=== PATIENT | male | born 1980 | race Caucasian/White ===

== ENCOUNTER 2023-04-17 09:01 | Inpatient (IN) ==
--- NOTE | 2023-03-30 14:54 | PAT Medication Instructions ---
Medication Instructions Date of Service March 30, 2023 Home Medications Medication Instructions Recorded cyanocobalamin (vitamin B-12) 1,000 mcg IM MONTHLY #7 ea 12/31/22 1,000 mcg/mL injection kit fluticasone propionate 50 2 spray intranasal DAILY #16 grams 12/31/22 mcg/actuation nasal spray,suspension lorazepam 1 mg tablet 1 mg PO TID PRN anxiety #90 tabs 12/31/22 prazosin 1 mg capsule 3 mg PO HS #90 caps 12/31/22 prednisone 20 mg tablet 40 mg PO DAILY PRN swelling #30 12/31/22 tabs tizanidine 4 mg capsule 4 mg PO BID PRN muscle spasticity 12/31/22 #60 caps albuterol sulfate 90 mcg/actuation aerosol inhaler 90 mcg inhalation BID PRN sob cetirizine 10 mg tablet 10 mg PO DAILY PRN allergies cyanocobalamin (vitamin B-12) 1,000 mcg/mL injection kit 1,000 mcg IM MONTHLY epinephrine 0.3 mg/0.3 mL injection, auto-injector 0.3 mg IM Q4H PRN food allergies fluoxetine 20 mg capsule 30 mg PO QAM fluticasone propionate 50 mcg/actuation nasal spray,suspension 2 spray intranasal DAILY lorazepam 1 mg tablet 1 mg PO TID PRN anxiety prazosin 1 mg capsule 3 mg PO HS prednisone 20 mg tablet 40 mg PO DAILY PRN swelling tizanidine 4 mg capsule 4 mg PO BID PRN muscle spasticity buspirone 10 mg tablet 20 mg PO BID celecoxib 200 mg capsule (Celebrex) 200 mg PO QAM magnesium oxide 400 mg PO QAM omeprazole 40 mg capsule,delayed release 40 mg PO QAM Continue as directed epinephrine 0.3 mg/0.3 mL injection, auto-injector 0.3 mg IM Q4H PRN food allergies (if needed) ASK your surgeon for instructions celecoxib 200 mg capsule (Celebrex) 200 mg PO QAM DO NOT take the morning of surgery cetirizine 10 mg tablet 10 mg PO DAILY PRN allergies cyanocobalamin (vitamin B-12) 1,000 mcg/mL injection kit 1,000 mcg IM MONTHLY magnesium oxide 400 mg PO QAM Take morning of surgery With a small sip of water, OTHERWISE NOTHING TO EAT OR DRINK AFTER MIDNIGHT: albuterol sulfate 90 mcg/actuation aerosol inhaler 90 mcg inhalation BID PRN sob (use if needed; please bring rescue inhaler with you to hospital day of surgery if possible) fluoxetine 20 mg capsule 30 mg PO QAM fluticasone propionate 50 mcg/actuation nasal spray,suspension 2 spray intranasal DAILY lorazepam 1 mg tablet 1 mg PO TID PRN anxiety (if needed) prednisone 20 mg tablet 40 mg PO DAILY PRN swelling (if needed) buspirone 10 mg tablet 20 mg PO BID omeprazole 40 mg capsule,delayed release 40 mg PO QAM Take evening before surgery albuterol sulfate 90 mcg/actuation aerosol inhaler 90 mcg inhalation BID PRN sob (if needed) cetirizine 10 mg tablet 10 mg PO DAILY PRN allergies (if needed) lorazepam 1 mg tablet 1 mg PO TID PRN anxiety (if needed) prazosin 1 mg capsule 3 mg PO HS prednisone 20 mg tablet 40 mg PO DAILY PRN swelling (if needed) tizanidine 4 mg capsule 4 mg PO BID PRN muscle spasticity (if needed) buspirone 10 mg tablet 20 mg PO BID Other Notes If you have any questions please call us at [phone] or [phone] or [phone] or [phone]
--- NOTE | 2023-04-03 11:01 | Anesthesiology Consultation ---
Date of Service April 03, 2023 Assessment & Plan (1) Encounter for pre-operative examination: Chart Review Chart Review: Acceptable Risk for Surgery and Patient seen in Pre Admission Testing Teaching & Discussion Pre-Anesthesia Teaching/Discussion Notes: Instructed NPO after midnight before surgery, except medications with 15 cc of water. Medication instructions provided according to the PAT guidelines. History Surgery Operation Date: 04/17/23 10:25 Proposed Procedures p L3-L5 Decompression and Fusion, Spinal Cord Monitoring - Nicolas León DO Height/Weight Height: 6 ft 4 in Weight: 136.078 kg Allergies Allergy/AdvReac Type Severity Reaction Status Date / Time carrot Allergy Severe Anaphylaxis Verified 03/27/23 12:41 celery Allergy Severe Anaphylaxis Verified 03/27/23 12:41 tree nut Allergy Severe Anaphylaxis Verified 03/27/23 12:41 No Known Drug Allergies Allergy Unknown Verified 03/26/23 15:46 Medications Home Medications Medication Instructions Recorded Confirmed Last Taken albuterol sulfate 90 mcg/actuation 90 mcg inhalation BID PRN sob 12/30/22 03/26/23 Unknown aerosol inhaler cetirizine 10 mg tablet 10 mg PO DAILY PRN allergies 12/31/22 03/26/23 Unknown cyanocobalamin (vitamin B-12) 1,000 mcg IM MONTHLY #7 ea 12/31/22 03/26/23 Unknown 1,000 mcg/mL injection kit epinephrine 0.3 mg/0.3 mL 0.3 mg IM Q4H PRN food allergies 12/31/22 03/26/23 Unknown injection, auto-injector fluoxetine 20 mg capsule 30 mg PO QAM 12/31/22 03/26/23 Unknown fluticasone propionate 50 2 spray intranasal DAILY #16 grams 12/31/22 03/26/23 Unknown mcg/actuation nasal spray,suspension lorazepam 1 mg tablet 1 mg PO TID PRN anxiety #90 tabs 12/31/22 03/26/23 Unknown prazosin 1 mg capsule 3 mg PO HS #90 caps 12/31/22 03/26/23 Unknown prednisone 20 mg tablet 40 mg PO DAILY PRN swelling #30 12/31/22 03/26/23 Unknown tabs tizanidine 4 mg capsule 4 mg PO BID PRN muscle spasticity 12/31/22 03/26/23 Unknown #60 caps buspirone 10 mg tablet 20 mg PO BID 03/26/23 03/26/23 Unknown celecoxib 200 mg capsule (Celebrex) 200 mg PO QAM 03/26/23 03/26/23 Unknown magnesium oxide 400 mg PO QAM 03/26/23 03/26/23 Unknown omeprazole 40 mg capsule,delayed 40 mg PO QAM 03/26/23 03/26/23 Unknown release Past Medical History Medical History (Updated 04/03/23 @ 11:24 by Marcia Deulna PA-C) 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 Exercise / Class Metabolic Activity II 4-5 Yardwork/Stairs/Walk up hill (denies chest discomfort or shortness of breath with 1 FOS) Past Surgical History Surgical History (Updated 04/03/23 @ 11:17 by Marcia Deluna PA-C) History of open reduction and internal fixation (ORIF) procedure left ankle Hx of gastric bypass 2010 Past Anesthesia History No Hx of Anesthesia Complications and No Family Hx of Anesthesia Complications History of PONV No Hx of PONV and No Hx of Motion Sickness Social History Smoking Status: Never smoker Do You Dip or Chew Tobacco: No Hx Alcohol Use: Yes Alcohol type: beer alcohol intake frequency: holidays/special occasions only Hx Substance Use: No substance use type: does not use Review of Systems Snoring, denies witnessed apneas. Patient denies chest pain, shortness of breath, dyspnea on exertion, fever, chills, cough, wheezing, or palpitations. Physical Exam Vital Signs Vitals BP 132/88 P 74 TEMP 98.2 SP02 96% on RA RESP 18 Physical Full cervical extension range of motion without pain TMD 3.5 finger breadths Mallampati Score 2 Dentition: intact, denies chipped or loose teeth, caps/crowns, implants or bridges Lungs: normal respiratory effort. Clear throughout to auscultation, no adventitious breath sounds Cardiac: regular rate and rhythm, no murmurs noted Carotid arteries: negative bruit bilat Lab Results Anesthesia Preop Results Results Anesthesia Widget: WBC 4.29 K/ul (4.8-10.8) L 04/03/23 Hgb 15.4 g/dl (14.0-18.0) 04/03/23 Hct 45.0 % (42.0-52.0) 04/03/23 Plt 240 K/uL (130-400) 04/03/23 Na 136 mmol/L (136-145) 04/03/23 K 4.1 mmol/L (3.5-5.1) 04/03/23 Cl 105 mmol/L (98-107) 04/03/23 CO2 26 mmol/L (21-32) 04/03/23 BUN 15 mg/dl (6-23) 04/03/23 Creat 0.91 mg/dl (0.6-1.4) 04/03/23 Glucose Level 98 mg/dl (70-99(Fasting)) 04/03/23 PT 10.8 Seconds (9.0-12.0) 04/03/23 PTT 28.5 Seconds (21.0-31.0) 04/03/23 INR 1.0 (0.9-1.1) 04/03/23 Urine Color Yellow 04/03/23 Urine Appearance Clear (Clear) 04/03/23 Urine pH 6.0 (4.5-7.5) 04/03/23 Urine Specific Sigurd 1.014 (1.000-1.030) 04/03/23 Urine Protein Negative (Negative) 04/03/23 Urine Glucose (UA) Negative (Negative) 04/03/23 Urine Ketones Negative (Negative) 04/03/23 Urine Blood Negative (Negative) 04/03/23 Urine Nitrite Negative (Negative) 04/03/23 Urine Bilirubin Negative (Negative) 04/03/23 Urine Urobilinogen Negative (Negative) 04/03/23 Urine Leukocyte Esterase Negative (Negative) 04/03/23 Blood Type O Negative 04/03/23 Antibody Screen NEGATIVE 04/03/23 Testing Electrocardiogram Date: 04/03/23 NSR, rate 65 bpm Chest X-Ray Date: 04/03/23 Lung volumes are normal. Lungs are clear. There is no pneumothorax or pleural effusion. Cardiac size is normal. Right heart border is slightly obscured. This may be due to a mild pectus excavatum deformity. Mediastinal contours are normal. There is no evidence for pulmonary edema. IMPRESSION: No acute cardiopulmonary findings. Echocardiogram Date: 09/01/22 EF 60-65% Normal LV wall motion No significant valvular disease COVID-19 Risk Screen Screening Information COVID-19 Screen Date: 04/03/23 Exposure 21 Days Family/Household +COVID Last 21 Days: No Exposure 10 Days Any COVID Exposure Last 10 Days: No Symptoms Last 10 Days Experienced COVID Sx Last 10 Days: No + COVID 0-90 Days COVID + in Last 0-90 Days: No
[~2023-04-17 09:01] MED LIST: ACETAMINOPHEN 500 MG TAB PO SCH; CeleBREX 200 MG CAP PO SCH; GABAPENTIN 900 MG DOSE PO SCH; LR 15ML/HR IV SCH
[2023-04-17] MEDS ORDERED: PROMETHAZINE HCL 6.25 MG in SODIUM CHLORIDE 0.9% 50 ML IV PRN (09:32)
[2023-04-17] MEDS ORDERED: ePHEDrine sulfate 50 MG/ML AMP IV PRN (09:32)
[2023-04-17] MEDS ORDERED: ONDANSETRON INJ 2 MG/ML 2 ML VIAL IV PRN ×2 (09:32→15:16)
[2023-04-17] MEDS ORDERED: ATROPINE SULFATE 0.1 MG/ML 10ML SYR IV PRN (09:32)
--- NOTE | 2023-04-17 09:32 | Anesthesiology Consultation ---
Date of Service April 17, 2023 Assessment & Plan Chart Review Chart Review: Acceptable Risk for Surgery and Patient NOT seen in Pre Admission Testing Consults Requested none ASA ASA2 Proposed Anesthesia Anesthesia Type: General History Surgery Operation Date: 04/17/23 10:25 Proposed Procedures p L3-L5 Decompression and Fusion, Spinal Cord Monitoring - Nicolas León DO Height/Weight Height: 6 ft 4 in Weight: 136.531 kg Allergies Allergy/AdvReac Type Severity Reaction Status Date / Time carrot Allergy Severe Anaphylaxis Verified 04/17/23 09:29 celery Allergy Severe Anaphylaxis Verified 04/17/23 09:29 tree nut Allergy Severe Anaphylaxis Verified 04/17/23 09:29 No Known Drug Allergies Allergy Unknown Verified 04/17/23 09:29 Medications Home Medications Medication Instructions Recorded Confirmed Last Taken albuterol sulfate 90 mcg/actuation 90 mcg inhalation BID PRN sob 12/30/22 03/26/23 Unknown aerosol inhaler cetirizine 10 mg tablet 10 mg PO DAILY PRN allergies 12/31/22 03/26/23 Unknown cyanocobalamin (vitamin B-12) 1,000 mcg IM MONTHLY #7 ea 12/31/22 03/26/23 Unknown 1,000 mcg/mL injection kit epinephrine 0.3 mg/0.3 mL 0.3 mg IM Q4H PRN food allergies 12/31/22 03/26/23 Unknown injection, auto-injector fluoxetine 20 mg capsule 30 mg PO QAM 12/31/22 03/26/23 Unknown fluticasone propionate 50 2 spray intranasal DAILY #16 grams 12/31/22 03/26/23 Unknown mcg/actuation nasal spray,suspension lorazepam 1 mg tablet 1 mg PO TID PRN anxiety #90 tabs 12/31/22 03/26/23 Unknown prazosin 1 mg capsule 3 mg PO HS #90 caps 12/31/22 03/26/23 Unknown prednisone 20 mg tablet 40 mg PO DAILY PRN swelling #30 12/31/22 03/26/23 Unknown tabs tizanidine 4 mg capsule 4 mg PO BID PRN muscle spasticity 12/31/22 03/26/23 Unknown #60 caps buspirone 10 mg tablet 20 mg PO BID 03/26/23 03/26/23 Unknown celecoxib 200 mg capsule (Celebrex) 200 mg PO QAM 03/26/23 03/26/23 Unknown magnesium oxide 400 mg PO QAM 03/26/23 03/26/23 Unknown omeprazole 40 mg capsule,delayed 40 mg PO QAM 03/26/23 03/26/23 Unknown release NPO Date Last Intake of Fluids: 04/17/23 Time Last Intake of Fluids: 07:00 Last Intake of Fluids Comment: sip with med Date Last Intake of Solids: 04/16/23 Time Last Intake of Solids: 22:00 Past Medical History Medical History 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, sequela tree nuts, carrots, celery Anxiety Chronic back pain pain down right leg Chronic idiopathic urticaria Degenerative disc disease denies neck pain GERD (gastroesophageal reflux disease) controlled, stable per pt History of COVID-19 10/2022 mild syptoms Hyperlipidemia IBS (irritable bowel syndrome) Post traumatic stress disorder Seasonal allergies Past Surgical History Surgical History History of open reduction and internal fixation (ORIF) procedure left ankle Hx of gastric bypass 2010 Social History Smoking Status: Never smoker Do You Dip or Chew Tobacco: No Hx Alcohol Use: Yes Alcohol type: beer alcohol intake frequency: holidays/special occasions only Hx Substance Use: No substance use type: does not use Physical Exam Vital Signs Last Vital Signs Temp 36.6 C 04/17/23 09:17 Pulse 76 04/17/23 09:17 Resp 20 04/17/23 09:17 Pulse Ox 96 04/17/23 09:17 O2 Del Method Room Air 04/17/23 09:17 Testing Electrocardiogram Date: 04/03/23 NSR, rate 65 bpm Chest X-Ray Date: 04/03/23 Lung volumes are normal. Lungs are clear. There is no pneumothorax or pleural effusion. Cardiac size is normal. Right heart border is slightly obscured. This may be due to a mild pectus excavatum deformity. Mediastinal contours are normal. There is no evidence for pulmonary edema. IMPRESSION: No acute cardiopulmonary findings. Echocardiogram Date: 09/01/22 EF 60-65% Normal LV wall motion No significant valvular disease
[2023-04-17] MEDS ORDERED: MIDAZOLAM HCL 1 MG/ML 2ML VIAL ONE (09:37)
[2023-04-17] MEDS ORDERED: fentaNYL citrate PF 100 MCG/2 ML VIAL ONE ×2 (09:37→11:12)
--- NOTE | 2023-04-17 09:52 | History & Physical Bridge Note ---
Date of Service April 17, 2023 History & Physical Bridge Note I have examined the patient, reviewed the History & Physical and in the interval since the performance of the History & Physical I have noted the following changes of clinical significance: no changes noted
--- NOTE | 2023-04-17 09:53 | History & Physical Report ---
Date of Service April 17, 2023 Assessment & Plan (1) Neurogenic claudication due to lumbar spinal stenosis: Plan: L3-L5 decompression and fusion History of Present Illness Chief Complaint: Back and bilateral leg pain Primary Care Provider: Иван Gordon MD This is a 43-year-old male who presents with chronic persistent back and leg pain after failing course of nonoperative care is here for surgical invention. Allergies Allergy/AdvReac Type Severity Reaction Status Date / Time carrot Allergy Severe Anaphylaxis Verified 04/17/23 09:29 celery Allergy Severe Anaphylaxis Verified 04/17/23 09:29 tree nut Allergy Severe Anaphylaxis Verified 04/17/23 09:29 No Known Drug Allergies Allergy Unknown Verified 04/17/23 09:29 Home Medications Medication Instructions Recorded Confirmed Type albuterol sulfate 90 mcg/actuation 90 mcg inhalation BID PRN sob 12/30/22 04/17/23 History aerosol inhaler cetirizine 10 mg tablet 10 mg PO DAILY PRN allergies 12/31/22 04/17/23 History cyanocobalamin (vitamin B-12) 1,000 mcg IM MONTHLY #7 ea 12/31/22 04/17/23 Rx 1,000 mcg/mL injection kit epinephrine 0.3 mg/0.3 mL 0.3 mg IM Q4H PRN food allergies 12/31/22 04/17/23 History injection, auto-injector fluoxetine 20 mg capsule 30 mg PO QAM 12/31/22 04/17/23 History fluticasone propionate 50 2 spray intranasal DAILY #16 grams 12/31/22 04/17/23 Rx mcg/actuation nasal spray,suspension lorazepam 1 mg tablet 1 mg PO TID PRN anxiety #90 tabs 12/31/22 04/17/23 Rx prazosin 1 mg capsule 3 mg PO HS #90 caps 12/31/22 04/17/23 Rx tizanidine 4 mg capsule 4 mg PO BID PRN muscle spasticity 12/31/22 04/17/23 Rx #60 caps buspirone 10 mg tablet 20 mg PO BID 03/26/23 04/17/23 History celecoxib 200 mg capsule (Celebrex) 200 mg PO QAM 03/26/23 04/17/23 History magnesium oxide 400 mg PO QAM 03/26/23 04/17/23 History omeprazole 40 mg capsule,delayed 40 mg PO QAM 03/26/23 04/17/23 History release Past Med/Surg History Medical History (Updated 04/17/23 @ 09:53 by Nicolas León, DO) 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, sequela tree nuts, carrots, celery Anxiety Chronic back pain pain down right leg Chronic idiopathic urticaria Degenerative disc disease denies neck pain GERD (gastroesophageal reflux disease) controlled, stable per pt History of COVID-19 10/2022 mild syptoms Hyperlipidemia IBS (irritable bowel syndrome) Post traumatic stress disorder Seasonal allergies Surgical History History of open reduction and internal fixation (ORIF) procedure left ankle Hx of gastric bypass 2010 Social History Smoking Status: Never smoker Second Hand Exposure: No; Do You Dip or Chew Tobacco: No; Tobacco Cessation Education Requested by Patient: No Hx Alcohol Use: Yes Alcohol type: beer Hx Substance Use: No Preferred Language: Kazakh Communication Ability: Effective Chest Painting And Sealing Supervisor Required: No Beliefs That Will Affect Care: None Current Living Situation: Spouse Other Information That Helps Us Care for You: No Feels Safe at Home: Yes Safety Concerns: Feels Safe At This Time Assistive Devices: None Physical Exam Physical Exam: Patient is alert and oriented Heart regular rhythm Lungs clear Results & Data Results & Data Vital Signs (Past 12 Hours) Vital Signs Temp Pulse Resp Pulse Ox O2 Del Method 04/17/23 09:17 36.6 C 76 20 96 Room Air
[2023-04-17] MEDS ORDERED: ceFAZolin 330 MG/ML 1 GM VIAL ONE (10:14)
[2023-04-17] MEDS ORDERED: BUPIVACAINE/EPINEPHRINE 0.25% 1:200,000 30 ML VIAL ONE (10:14)
[2023-04-17] MEDS ORDERED: PROPOFOL IV EMULSION 10 MG/ML 20 ML VIAL IV ONE (11:08)
[2023-04-17] MEDS ORDERED: DEXAMETHASONE SOD INJ 4 MG/ML VIAL ONE (11:08)
[2023-04-17] MEDS ORDERED: ROCURONIUM BROMIDE 10 MG/ML 5 ML VIAL IV ONE ×2 (11:08→12:54)
[2023-04-17] MEDS ORDERED: LIDOCAINE 2% 2 ML VIAL/AMP(20MG/ML) INFIL ONE (11:08)
[2023-04-17] MEDS ORDERED: ONDANSETRON INJ 2 MG/ML 2 ML VIAL ONE (11:08)
[2023-04-17] MEDS ORDERED: GLYCOPYRROLATE 0.2 MG/ML VIAL ONE (11:09)
[2023-04-17] MEDS ORDERED: FLOSEAL HEMOSTATIC MATRIX 10ML TOP ONE (11:34)
[2023-04-17] MEDS ORDERED: SUGAMMADEX SODIUM 200 MG/2 ML VIAL IV ONE (12:55)
--- NOTE | 2023-04-17 13:02 | Operative Report ---
Post Operative Report Pre & Post Diagnosis Operation Date: 04/17/23 10:25 Pre-Op Diagnosis: Neurogenic claudication due to lumbar spinal stenosis Morbid obesity Post-Op Diagnosis: Same I identified the patient and participated in the time-out.: Yes Procedure Operation Date: 04/17/23 10:25 Actual Procedures #1 lumbar impression bilateral medial facetectomies and foraminotomies L2-3, L3- L4 and L4-5. #2 posterior spinal fusion L3-L4 L4-5 per #3 placed posterior instrumentation L3-L4 L4-5 per #4 interbody fusion L3-L4 L4 505 placement Spira 15 x 26 mm at L3-L4 L4-L5 #6 placement locally harvested morselized autograft and posterior gutters. #7 placement of I factor V toss in the interbody space and posterior lateral gutters. Surgeon Nicolas León, DO Automatic Presser Harpreet Reeder Estimated Blood Loss 750 Findings See Below The patient is 6 foot 4 weighing over 136 kg with a BMI in excess of 36. This combined with an EBL of greater than 750 cc. Significant technical difficulty. He required deepest retractors and longer instruments in order to perform his procedure. This at least 50% increased to the operative time. Specimens None Indications This is a 42-year-old male who presents above-mentioned diagnosis of failed course of nonoperative care is here for surgical invention. Description of Procedure Patient was met with identified informed consent obtained. Patient was then taken to the operative suite underwent patient placed in a prone position ejected top of some frame. All bony promises well-padded eyes inspected to ensure no external pressure placed upon the. This point lumbar spine was prepped and draped in a sterile fashion. Sharp dissection with the assistance of Bovie cautery to form down to and exposing the lamina transverse processes of L3 L4-5. From caudal cephalad fashion complete laminectomy of L4 L3 impression laminectomy L2 was performed including bilateral medial facetectomies and foraminotomies addressing severe spinal stenosis. Pedicle screws were then placed at L3 L4-5 bilaterally with assistance of fluoroscopy and appropriate sized angelia placed. By way of a transforaminal approach and left complete discectomy of L4-L5 was performed endplates curetted to subcortically and bone and a 15 x 26 mm Spira cage with I factor tapped in position. Then proceeded to L3-L4 and again by way of a trans foraminal approach and left P discectomy performed endplates curetted to subcortically bone and a 15 x 26 mm Spira cage with I factor tapped in position. The rods then compressed locked into final position bilaterally. The transverse processes of L3 L4-5 burred to subcortically bone. I factor amount of the test and locally harvested morselized autograft was placed in the posterior lateral gutters. 15 round NIALL drain inserted. The incision was then closed with 1 Vicryl the fascia 2-0 Vicryl subcutaneously and 4 Monocryl for final skin closure. Steri-Strips sterile dressings placed. Patient waken taken to PACU stable condition. Please note spinal cord monitoring was utilized at the procedure no changes noted. Lastly Harpreet Reeder was present at the entire surgeon while the patient positioning complex portions of the surgery and final skin closure. I attest to the content of the Intraoperative Record and any orders documented therein. Any exceptions are noted below.
--- NOTE | 2023-04-17 13:18 | Fluoroscopy Report ---
FL lumbar spine 2-3V CLINICAL HISTORY: L3-5 DFI COMPARISON STUDY: None. FLUOROSCOPY TIME: 37 seconds FLUOROSCOPY IMAGES: 3 Ka,r: 34.0 mGy FINDINGS: Posterior decompression and fusion within the mid to lower lumbar spine. The exact levels a re difficult to confirm on this spot image. The hardware appears intact. Disc spacers are placed. IMPRESSION: Fluoroscopic assistance as above. ACT 112: Negative or not required by law. Electronically signed by: Ervin Banks M.D. 04/17/2023 1:17 PM
[2023-04-17] MEDS: fentaNYL citrate PF 100 MCG/2 ML VIAL IV PRN ×2 (13:40→13:45)
[2023-04-17] MEDS: HYDROmorphone INJ 2 MG/ML SYR/VIAL IV PRN ×4 (13:50→14:05)
--- NOTE | 2023-04-17 13:55 | Anesthesiology Progress Note ---
Date of Service April 17, 2023 Anesthesia Post Procedure Vital Signs Vital Signs: Temp Pulse Pulse Resp BP BP Pulse Ox 04/17/23 13:50 82 19 141/89 H 98 04/17/23 13:40 89 16 140/97 99 04/17/23 13:30 84 17 133/80 98 04/17/23 13:24 36.1 C L 83 11 L 145/78 H 98 04/17/23 09:17 36.6 C 76 20 150/88 H 96 O2 Del Method O2 Flow Rate 04/17/23 13:50 Oxymask 6 04/17/23 13:40 Oxymask 6 04/17/23 13:30 Oxymask 10 04/17/23 13:24 Oxymask 10 04/17/23 09:17 Room Air Pain Intensity Lower Back: Pain Intensity: 5 Transfer of Care Handoff Completed per policy Notes Mental Status: alert / awake / arousable Patient Amnestic to Procedure: Yes Nausea / Vomiting: adequately controlled Pain: adequately controlled Airway Patency, RR, SpO2: stable & adequate BP & HR: stable & adequate Hydration State: stable & adequate Anesthetic Complications: no major complications apparent
[2023-04-17] MEDS ORDERED: hydrOXYzine HCl 25 MG TAB PO PRN (15:16)
[2023-04-17] MEDS ORDERED: LORazepam 2 MG/1 ML VIAL IV PRN (15:16)
[2023-04-17] MEDS ORDERED: PROMETHAZINE HCL 12.5 MG in SODIUM CHLORIDE 0.9% 50 ML IV PRN (15:16)
[2023-04-17] MEDS ORDERED: HYDROmorphone INJ 0.5 MG/0.5 ML SYR IV PRN (15:16)
[2023-04-17] MEDS ORDERED: traMADol HCL 50 MG TABLET PO PRN (15:16)
[2023-04-17] MEDS ORDERED: DO NOT ADMINISTER FLU VACCINE PRN (15:16)
[2023-04-17] MEDS ORDERED: bisacodyL 10 MG SUPP PR PRN (15:16)
[2023-04-17] MEDS ORDERED: METOCLOPRAMIDE HCL INJ 5 MG/ML 2 ML VIAL IV PRN (15:16)
[2023-04-17] MEDS ORDERED: HYDROmorphone INJ 1 MG/ML SYRINGE IV PRN (15:16)
[2023-04-17] MEDS ORDERED: diphenhydrAMINE Capsule 25 MG CAP PO PRN (15:16)
[2023-04-17] MEDS ORDERED: DO NOT ADMINISTER PNEUMOCOCCAL VACCINE PRN (15:16)
[2023-04-17] MEDS ORDERED: ONDANSETRON 4 MG OD TAB PO PRN (15:16)
[2023-04-17] MEDS ORDERED: ACETAMINOPHEN 1,000 MG/100 ML VIAL IV PRN (15:16)
[2023-04-17] MEDS ORDERED: MAGNESIUM HYDROXIDE SUSP 30 ML UDC PO PRN (15:16)
[2023-04-17] MEDS ORDERED: SOD PHOSPHATE/SOD BIPHOSPHATE ENEMA 132 ML BTL PR PRN (15:16)
[2023-04-17] MEDS ORDERED: NALOXONE HCL 0.4 MG/1 ML VIAL/CARP IV PRN (15:16)
[2023-04-17] MEDS ORDERED: CETIRIZINE HCL 10 MG TABLET PO PRN (15:16)
[2023-04-17] MEDS ORDERED: ALUMINUM/MAGNESIUM SUSP 30 ML UDC PO PRN (15:16)
[2023-04-17] MEDS ORDERED: FAMOTIDINE 20 MG TAB PO PRN (15:16)
[2023-04-17] MEDS: LACTATED RINGER'S 1,000 ML IV SCH ×2 (15:28→22:06)
[2023-04-17] MEDS ORDERED: EPINEPHrine INJ 1 MG/ML AMP IM PRN (15:31)
[2023-04-17] MEDS: oxyCODONE HCL IR 5 MG TAB (IMMEDIATE RELEASE) PO PRN ×2 (17:44→22:05)
--- NOTE | 2023-04-17 18:17 | Consultation ---
Date of Consultation April 17, 2023 Assessment & Plan (1) Neurogenic claudication due to lumbar spinal stenosis: Plan #. Status post lumbar decompression fusion by Dr. León #. Neurogenic claudication due to lumbar spinal stenosis Patient is a status post surgery 04/17, hemodynamically stable. Pain management. DVT prophylaxis and PT OT per primary team. We will get labs in a.m. Watch out for blood loss anemia. #. Chronic medical condition: resume home meds as able. DVT Px: SCDs, per primary full code. History of Present Illness Requesting Physician: Dr. León Reason for Consultation: Medical Mx Attending Physician: Nicolas León, DO History of Present Illness 43-year-old male with PMH of neurogenic claudication due to lumbar spinal stenosis was seen at bedside after lumbar decompression and fusion. Patient denies any fever/illness/runny nose/sore throat/cough/chest pain in the past few weeks preceding surgery. Patient denies smoking, uses alcohol very occasionally, denies using any recreational drugs. Full code Medications were reviewed with the patient. Patient appears hemodynamically stable, was sitting upright and have improved after surgery. Patient reports improvement in his RLE radicular pain after the surgery. Allergies Allergy/AdvReac Type Severity Reaction Status Date / Time carrot Allergy Severe Anaphylaxis Verified 04/17/23 09:29 celery Allergy Severe Anaphylaxis Verified 04/17/23 09:29 tree nut Allergy Severe Anaphylaxis Verified 04/17/23 09:29 No Known Drug Allergies Allergy Unknown Verified 04/17/23 09:29 Home Medications Medication Instructions Recorded Confirmed Type albuterol sulfate 90 mcg/actuation 90 mcg inhalation BID PRN sob 12/30/22 History aerosol inhaler cetirizine 10 mg tablet 10 mg PO DAILY PRN allergies 12/31/22 04/17/23 History cyanocobalamin (vitamin B-12) 1,000 mcg IM MONTHLY #7 ea 12/31/22 04/17/23 Rx 1,000 mcg/mL injection kit epinephrine 0.3 mg/0.3 mL 0.3 mg IM Q4H PRN food allergies 12/31/22 04/17/23 History injection, auto-injector fluoxetine 20 mg capsule 30 mg PO QAM 12/31/22 04/17/23 History fluticasone propionate 50 2 spray intranasal DAILY #16 grams 12/31/22 04/17/23 Rx mcg/actuation nasal spray,suspension lorazepam 1 mg tablet 1 mg PO TID PRN anxiety #90 tabs 12/31/22 04/17/23 Rx prazosin 1 mg capsule 3 mg PO HS #90 caps 12/31/22 04/17/23 Rx tizanidine 4 mg capsule 4 mg PO BID PRN muscle spasticity 12/31/22 04/17/23 Rx #60 caps buspirone 10 mg tablet 20 mg PO BID 03/26/23 04/17/23 History celecoxib 200 mg capsule (Celebrex) 200 mg PO QAM 03/26/23 04/17/23 History magnesium oxide 400 mg PO QAM 03/26/23 04/17/23 History omeprazole 40 mg capsule,delayed 40 mg PO QAM 03/26/23 04/17/23 History release Patient History Medical History (Updated 04/17/23 @ 09:53 by Nicolas León DO) 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, sequela tree nuts, carrots, celery Anxiety Chronic back pain pain down right leg Chronic idiopathic urticaria Degenerative disc disease denies neck pain GERD (gastroesophageal reflux disease) controlled, stable per pt History of COVID-19 10/2022 mild syptoms Hyperlipidemia IBS (irritable bowel syndrome) Post traumatic stress disorder Seasonal allergies Surgical History History of open reduction and internal fixation (ORIF) procedure left ankle Hx of gastric bypass 2010 Social History Smoking Status: Never smoker Second Hand Exposure: No; Do You Dip or Chew Tobacco: No; Tobacco Cessation Education Requested by Patient: No Hx Alcohol Use: Yes Alcohol type: beer Hx Substance Use: No Preferred Language: Nigerian Communication Ability: Effective Children'S Service Worker Required: No Beliefs That Will Affect Care: None Current Living Situation: Spouse Other Information That Helps Us Care for You: No Feels Safe at Home: Yes Safety Concerns: Feels Safe At This Time Assistive Devices: None Review of Systems Review of Systems: Negative otherwise mentioned in HPI. Physical Exam 2 Physical Exam: GENERAL: Alert and oriented x3. NAD, on RA. HEENT: No pallor, no icterus. Pupils equal, round and reactive to light. Oral mucosa moist. NECK: No JVD, no neck masses. HEART: S1 and S2 heard. Regular rate and rhythm. No murmur, no gallop. RESPIRATORY SYSTEM: Normal AP diameter. No accessory muscle use. No wheezing, no crackles. ABDOMEN: Soft, bowel sounds present, nontender, no distention. CENTRAL NERVOUS SYSTEM: No facial droop. Speech is clear. Obeys simple commands. Moves extremities. EXTREMITIES: No edema, no erythema seen. Lower back with clean dressing without soakage, NIALL drain with moderate serosanguineous collection noted. Distal neurovascular status WNL. Results & Data Vital Signs (Past 12 Hours) Vital Signs Temp Pulse Pulse Resp BP BP Pulse Ox 04/17/23 17:17 37 C 93 H 16 133/89 96 04/17/23 16:14 36.6 C 74 17 127/84 95 04/17/23 16:09 04/17/23 15:48 36.6 C 79 17 124/86 96 04/17/23 15:00 81 17 126/90 94 04/17/23 14:45 79 16 120/98 95 04/17/23 14:10 76 17 131/87 94 04/17/23 14:30 36.5 C 83 16 136/87 96 04/17/23 14:20 77 14 136/82 95 04/17/23 14:00 90 15 143/100 H 94 04/17/23 13:50 82 19 141/89 H 98 04/17/23 13:40 89 16 140/97 99 04/17/23 13:30 84 17 133/80 98 04/17/23 13:24 36.1 C L 83 11 L 145/78 H 98 04/17/23 09:17 36.6 C 76 20 150/88 H 96 O2 Del Method O2 Flow Rate 04/17/23 17:17 Nasal Cannula 1 04/17/23 16:14 Nasal Cannula 2 04/17/23 16:09 Nasal Cannula 04/17/23 15:48 Nasal Cannula 2 04/17/23 15:00 Nasal Cannula 2 04/17/23 14:45 Nasal Cannula 2 04/17/23 14:10 Nasal Cannula 2 04/17/23 14:30 Nasal Cannula 2 04/17/23 14:20 Nasal Cannula 2 04/17/23 14:00 Nasal Cannula 2 04/17/23 13:50 Oxymask 6 04/17/23 13:40 Oxymask 6 04/17/23 13:30 Oxymask 10 04/17/23 13:24 Oxymask 10 04/17/23 09:17 Room Air
[2023-04-17] MEDS: ceFAZolin 2000MG 2,000 MG/15 ML SYR IV SCH (18:31)
[2023-04-17] MEDS: busPIRone 5 MG TAB PO SCH (20:33)
[2023-04-17] MEDS: DOCUSATE SODIUM/SENNA 50/8.6MG TAB PO SCH (20:33)
[2023-04-17] MEDS: PRAZOSIN HCL 1 MG CAP PO SCH (20:33)
[2023-04-17] MEDS: ACETAMINOPHEN 500 MG TAB PO PRN (22:05)
[2023-04-18] MEDS: oxyCODONE HCL IR 5 MG TAB (IMMEDIATE RELEASE) PO PRN ×5 (03:20→22:33)
[2023-04-18] MEDS: ceFAZolin 2000MG 2,000 MG/15 ML SYR IV SCH (03:20)
[2023-04-18] MEDS: LACTATED RINGER'S 1,000 ML IV SCH (05:24)
[2023-04-18] MEDS: POLYETHYLENE (MIRALAX) 17 GM PACK PO SCH ×4 (06:09→23:04)
[2023-04-18 07:07] LABS: Basophils # (auto) 0.02 K/uL (0-0.2); Basophils % (auto) 0.2 %; Eosinophils # (auto) 0.02 K/uL (0-0.50); Eosinophils % (auto) 0.2 %; Hematocrit (blood only) 37.4 % (42.0-52.0); Hemoglobin 12.8 g/dl (14.0-18.0); Immature Granulocytes # (auto) 0.03 K/uL (0.01-0.20); Immature Granulocytes % (auto) 0.3 %; Lymphocytes # (auto) 1.88 K/uL (1.2-3.4); Lymphocytes % (auto) 21.6 %; Mean Corpuscular Hemoglobin 32.5 pg (25.0-34.0); Mean Corpuscular Hgb Conc 34.2 g/dL (32.0-36.0); Mean Corpuscular Volume 94.9 fL (80.0-100.0); Mean Platelet Volume 9.5 fL (9.4-12.4); Monocytes # (auto) 0.91 K/uL (0.11-0.59); Monocytes % (auto) 10.5 %; Neutrophils # (auto) 5.84 K/uL (1.40-6.50); Neutrophils % (auto) 67.2 %; Platelet Count 185 K/uL (130-400); RDW Coefficient of Variation 12.5 % (11.5-14.5); RDW Standard Deviation 43.8 fL (36.4-46.3); Red Blood Count 3.94 M/uL (4.70-6.10)
[2023-04-18 07:23] LABS: BUN Creatinine Ratio 13.8 (10-20); Calcium 8.5 mg/dl (8.6-10.3); Creatinine Clr Calc Pharmacy 165.2 ml/min; Est GFR (African American) 122.5 ml/min; Est GFR (Non-African American) 105.7 ml/min; Potassium 3.9 mmol/L (3.5-5.1)
[2023-04-18] MEDS: ACETAMINOPHEN 500 MG TAB PO PRN (07:59)
[2023-04-18] MEDS: busPIRone 5 MG TAB PO SCH ×2 (08:01→20:48)
[2023-04-18] MEDS: PANTOprazole 40 MG TAB PO SCH (08:02)
[2023-04-18] MEDS: FLUoxetine HCL 10 MG CAP PO SCH (08:02)
[2023-04-18] MEDS: MAGNESIUM OXIDE 400 MG TAB PO SCH (08:02)
[2023-04-18] MEDS: FLUTICASONE PROPIONATE NA SPR 16 GM BTL SCH (08:03)
[2023-04-18] MEDS: dexAMETHasone 6 MG in SYRINGE 0 ML IV SCH (08:05)
--- NOTE | 2023-04-18 08:19 | Orthopedic Progress Note ---
Date of Service April 18, 2023 Assessment & Plan (1) Neurogenic claudication due to lumbar spinal stenosis: Plan: Patient is doing well postop day #1. Going to continue with pain control measures. We will DC his catheter. We will maintain his NIALL drain. He will be seen by physical therapy today for ambulation and gait training. We will likely keep him in throughout the weekend and let him go home on Thursday. Admission and Anticipated Discharge Date Admission Date: April 17, 2023 Subjective Patient was seen bedside in room 363. He has some soreness in the back today but the legs seem to be doing better. He still has numbness in the anterior thigh on the left. He has been tolerating food and liquids without difficulties. He denies any other numbness, tingling, or paresthesias. Physical Exam Physical Exam: On exam he is alert and oriented. He is in no apparent distress. His dressing is clean dry and intact his NIALL drain is in place and put out 40 cc and 60 cc on the previous shift. His lower extreme motor exam reveals no focal atrophy his calves are supple nontender his abdomen soft nontender his strength and sensation are grossly intact. Cardiovascular exam reveals no gross abnormalities. Results & Data Vital Signs (Past 12 Hours) Vital Signs Temp Pulse Pulse Resp BP Pulse Ox O2 Del Method 04/18/23 08:12 36.4 C L 84 17 145/80 H 98 Room Air 04/18/23 03:25 36.7 C 97 H 16 117/72 91 Room Air 04/17/23 22:15 37.3 C 106 H 16 133/72 93 Room Air 04/17/23 20:30 88 138/80
--- NOTE | 2023-04-18 14:33 | Hospitalist Progress Note ---
Date of Service April 18, 2023 Assessment & Plan (1) Neurogenic claudication due to lumbar spinal stenosis: Plan #. Status post lumbar decompression fusion by Dr. León #. Neurogenic claudication due to lumbar spinal stenosis #. Acute blood loss anemia: Secondary to operative blood loss patient with no signs and symptoms of anemia, no need for transfusion. Patient is a status post surgery 04/17, hemodynamically stable. Pain management. DVT prophylaxis and PT OT per primary team. Labs in a.m. per H&H monitoring. #. Chronic medical condition: c/w home meds as able. DVT Px: SCDs, per primary full code. Admission and Anticipated Discharge Date Admission Date: April 17, 2023 Subjective Patient seen and examined at bedside as a follow-up of medical management for lumbar decompression and fusion. Patient was lying semiupright in bed, on room air, NAD, denies any new acute event overnight. Reports soreness at operative site. Reports moving gas, has not moved bowel, reports pain under control with pain medications. Denies any headache/fever/chills/chest pain/other review of symptoms. Physical Exam Physical Exam: GENERAL: Alert and oriented x3. NAD, on RA. HEENT: No pallor, no icterus. Pupils equal, round and reactive to light. Oral mucosa moist. NECK: No JVD, no neck masses. HEART: S1 and S2 heard. Regular rate and rhythm. No murmur, no gallop. RESPIRATORY SYSTEM: Normal AP diameter. No accessory muscle use. No wheezing, no crackles. ABDOMEN: Soft, bowel sounds present, nontender, no distention. CENTRAL NERVOUS SYSTEM: No facial droop. Speech is clear. Obeys simple commands. Moves extremities. EXTREMITIES: No edema, no erythema seen. Lower back with clean dressing without soakage, NIALL drain with moderate serosanguineous collection noted. Distal neurovascular status WNL. Results & Data Results & Data Vital Signs (Past 12 Hours) Vital Signs Temp Pulse Resp BP Pulse Ox O2 Del Method 04/18/23 08:12 36.4 C L 84 17 145/80 H 98 Room Air 04/18/23 03:25 36.7 C 97 H 16 117/72 91 Room Air
[2023-04-18] MEDS: DOCUSATE SODIUM/SENNA 50/8.6MG TAB PO SCH (20:48)
[2023-04-18] MEDS: PRAZOSIN HCL 1 MG CAP PO SCH (20:48)
[2023-04-18] MEDS: LORazepam 0.5 MG TAB PO PRN (23:04)
[2023-04-19] MEDS: POLYETHYLENE (MIRALAX) 17 GM PACK PO SCH ×4 (06:06→20:51)
[2023-04-19] MEDS: oxyCODONE HCL IR 5 MG TAB (IMMEDIATE RELEASE) PO PRN ×4 (06:08→22:40)
[2023-04-19 07:53] LABS: Hematocrit (blood only) 34.2 % (42.0-52.0); Hemoglobin 11.7 g/dl (14.0-18.0)
[2023-04-19] MEDS: PANTOprazole 40 MG TAB PO SCH (08:02)
[2023-04-19] MEDS: MAGNESIUM OXIDE 400 MG TAB PO SCH (08:03)
[2023-04-19] MEDS: busPIRone 5 MG TAB PO SCH ×2 (08:03→20:51)
--- NOTE | 2023-04-19 08:03 | Orthopedic Progress Note ---
Date of Service April 19, 2023 Assessment & Plan (1) Neurogenic claudication due to lumbar spinal stenosis: Plan: Patient is stable postoperative day #2. He still has not had a bowel movement and he is still putting out significant mount of drainage through his NIALL. We will keep him today continue with GI DVT prophylaxis as well as pain control measures. We will advance his bowel regimen and hopefully get him home tomorrow. Admission and Anticipated Discharge Date Admission Date: April 17, 2023 Subjective Patient is seen bedside in room 363. He is doing well this morning. His pain is well controlled. He has not yet had a bowel movement he is tolerating oral intake without difficulties however. He still has numbness in the left anterior thigh but no eve radicular complaints. He denies any other numbness, tingling, or paresthesias. Physical Exam Physical Exam: On exam he is alert and oriented. His abdomen soft and nontender his calves are supple nontender. His strength and sensation are both intact. Visual corrales are grossly intact. Cardiovascular exam reveals no gross abnormalities. Results & Data Vital Signs (Past 12 Hours) Vital Signs Temp Pulse Resp BP Pulse Ox O2 Del Method 04/19/23 07:33 36.9 C 89 16 120/72 97 Room Air 04/18/23 21:26 37.4 C 105 H 16 141/82 H 95 Room Air
[2023-04-19] MEDS: FLUTICASONE PROPIONATE NA SPR 16 GM BTL SCH (08:04)
[2023-04-19] MEDS: FLUoxetine HCL 10 MG CAP PO SCH (08:04)
[2023-04-19] MEDS: dexAMETHasone 6 MG in SYRINGE 0 ML IV SCH (08:56)
--- NOTE | 2023-04-19 17:16 | Hospitalist Progress Note ---
Date of Service April 19, 2023 Assessment & Plan (1) Neurogenic claudication due to lumbar spinal stenosis: Plan #. Status post lumbar decompression fusion by Dr. León #. Neurogenic claudication due to lumbar spinal stenosis #. Acute blood loss anemia: Secondary to operative blood loss patient with no signs and symptoms of anemia, no need for transfusion. Patient is a status post surgery 04/17, hemodynamically stable. Pain management. DVT prophylaxis and PT OT per primary team. Hb fairly stable now. #. Chronic medical condition: c/w home meds as able. DVT Px: SCDs, per primary full code. Admission and Anticipated Discharge Date Admission Date: April 17, 2023 Subjective Patient seen and examined at bedside as a follow-up of medical management for lumbar decompression and fusion. Patient was lying semiupright in bed, on room air, NAD, denies any new acute event overnight. Reports soreness at operative site improving. Reports moving bowel, reports pain under control with pain medications. Denies any headache/fever/chills/chest pain/other review of symptoms. Physical Exam Physical Exam: GENERAL: Alert and oriented x3. NAD, on RA. HEENT: No pallor, no icterus. Pupils equal, round and reactive to light. Oral mucosa moist. NECK: No JVD, no neck masses. HEART: S1 and S2 heard. Regular rate and rhythm. No murmur, no gallop. RESPIRATORY SYSTEM: Normal AP diameter. No accessory muscle use. No wheezing, no crackles. ABDOMEN: Soft, bowel sounds present, nontender, no distention. CENTRAL NERVOUS SYSTEM: No facial droop. Speech is clear. Obeys simple commands. Moves extremities. EXTREMITIES: No edema, no erythema seen. Lower back with clean dressing without soakage, NIALL drain with scant serosanguineous collection noted. Distal neurovascular status WNL. Results & Data Results & Data Vital Signs (Past 12 Hours) Vital Signs Temp Pulse Pulse Resp BP Pulse Ox O2 Del Method 04/19/23 15:04 36.8 C 83 16 146/84 H 95 Room Air 04/19/23 07:33 36.9 C 89 16 120/72 97 Room Air
[2023-04-19] MEDS: PRAZOSIN HCL 1 MG CAP PO SCH (20:51)
[2023-04-19] MEDS: DOCUSATE SODIUM/SENNA 50/8.6MG TAB PO SCH (20:51)
[2023-04-19] MEDS: LORazepam 0.5 MG TAB PO PRN (22:40)
[2023-04-20] MEDS: oxyCODONE HCL IR 5 MG TAB (IMMEDIATE RELEASE) PO PRN ×2 (05:54→12:26)
[2023-04-20] MEDS: POLYETHYLENE (MIRALAX) 17 GM PACK PO SCH (05:55)
[2023-04-20] MEDS: FLUTICASONE PROPIONATE NA SPR 16 GM BTL SCH (08:08)
[2023-04-20] MEDS: dexAMETHasone 6 MG in SYRINGE 0 ML IV SCH (08:09)
[2023-04-20] MEDS: FLUoxetine HCL 10 MG CAP PO SCH (08:09)
[2023-04-20] MEDS: PANTOprazole 40 MG TAB PO SCH (08:09)
[2023-04-20] MEDS: MAGNESIUM OXIDE 400 MG TAB PO SCH (08:09)
[2023-04-20] MEDS: busPIRone 5 MG TAB PO SCH (08:09)
--- NOTE | 2023-04-20 09:34 | Discharge Summary ---
Date of Service April 20, 2023 Admission HPI Per Admitting Provider This is a 43-year-old male who presents with chronic persistent back and leg pain after failing course of nonoperative care is here for surgical invention. Principal Diagnosis Lumbar spinal stenosis with neurogenic claudication Discharge Data Allergies Allergy/AdvReac Type Severity Reaction Status Date / Time carrot Allergy Severe Anaphylaxis Verified 04/17/23 09:29 celery Allergy Severe Anaphylaxis Verified 04/17/23 09:29 tree nut Allergy Severe Anaphylaxis Verified 04/17/23 09:29 No Known Drug Allergies Allergy Unknown Verified 04/17/23 09:29 Consultations 04/17/23 15:16 Consult Hospitalist Routine Procedures Performed Operation Date: 04/17/23 10:25 Actual Procedures p L3-L5 Decompression and Fusion, Spinal Cord Monitoring(Not Applicable) - Nicolas León DO Ordered Studies 04/17/23 10:25 [place] lumbar spine 2-3V Routine Hospital Course (1) Neurogenic claudication due to lumbar spinal stenosis: Patient 1 lumbar decompression fusion follow-up tolerates well stable orthopedic. Labor postop day 1 is up and ambulating breast postop day #2 postop day 3 pain was well controlled NIALL drain decreased appropriate. Excellent strength testing. Subsidy discharged home. Discharge orders instructions found in chart for further review. Total Time Total Time Spent Total Time Spent (In Minutes): 20 minutes Discharge Plan Discharge Items Patient Disposition: Home - Self-Care Reason For Visit: spinal Stenosis Lumbar Region without Neurogenic C Discharge Diagnosis: Lumbar spinal stenosis with neurogenic claudication Activity: As commented below Lifting: None Non-emergency contact: Primary Care Provider Call non-emergency contact if: you have any medication questions Follow-up/Referrals: Иван Gordon MD [Primary Care Provider] - Diet: Regular Addtl Attending Provider Instructions: ACTIVITY RECOMMENDATIONS: SELF CARE INSTRUCTIONS AFTER THORACIC/LUMBAR FUSIONS 1. You may walk to your tolerance. It is good exercise for your legs and back. Expect some back and intermittent leg aches and pains. 2. You may perform "counter-top" level activities (make a sandwich, robyn with a project, etc.). 3. No bending or lifting of more than 10 pounds or back twisting of any nature (roll like a log when turning in bed). 4. You may ride in a car for 20-30 minutes at a time. No driving until after your first visit with your doctor. 5. Frequent changes of position and restricting sitting to 30 minutes at a time will help limit the amount of back spasms and stiffness you may experience. 6. You may discontinue the use of ambulatory aids (cane, crutches, etc.) once your strength and confidence allow. 7. You may clinical sales consultant the shower and let water strike your incision when you arrive home at least once daily. Do not take a tub bath, sit in a hot tub or go into a swimming pool until after your first recheck in the office. SPECIAL CARE INSTRUCTIONS: VERY IMPORTANT TO READ AND REVIEW A. Your surgical incision has been closed with a cosmetic suture under the skin that will dissolve in about 6 weeks. In 14 days, you can use a pair of clean scissors and cut the suture that is left outside of the skin at the ends of your incision. 1. The small skin tapes can be removed 7 days after surgery if they have not fallen off by that point. 2. You may keep the wound open to air as much as possible to promote healing after post-op day number 5 unless told otherwise by your doctor. 3. If you think the wound looks like it is becoming infected (redness or worsening drainage) and/or you are experiencing fever, chill or worsening back pain and muscle spasms, contact the office so that we may evaluate you as soon as possible. B. Complications are uncommon, but please contact us if you have any signs or symptoms of: 1. wound infection (fever higher than 102.5 degrees F, redness, separation of wound, drainage, or increasing pain from the incision) 2. blood clots in legs (pain, swelling, redness and warmth in legs) 3. urinary tract infection (fever higher than 102.5 degrees F, burning upon urination or increased frequency of urination) 4. nerve problems (inability to walk on your toes or heels, numbness, loss of bowel or bladder control) 5. any other symptoms that concern you C. Please call the office at if you have any concerns or questions about your operation or recovery. D. No smoking! Smoking drastically decreases the chance of a solid fusion. E. Do not take any anti-inflammatory medications (Indocin, Advil, Motrin, Aspirin, Naprosyn, etc.) as these may inhibit the chance of a solid fusion. Tylenol is okay to take for pain. MANAGING PAIN AFTER SPINAL SURGERY 1. Narcotic medication is intended for short-term use and will be provided for surgical pain. Surgical pain usually lasts for a period of 4-6 weeks. Narcotic medication includes Percocet, Vicodin, Darvocet, Tylenol #3 or Lortab. 2. Longer-term pain is more appropriately treated with non-narcotic medication such as Tylenol ES. 3. Muscle spasm is not appropriately treated with narcotics. Muscle relaxers such as Soma, Flexeril or Skelaxin can be used along with Tylenol ES. 4. Remember that we all live with some "aches and pains". This is not unusual or uncommon after an injury or as we get older. a. Back pain is expected and may include muscle spasms for 4 to 6 weeks after surgery. The pain should gradually improve. If the pain worsens for no apparent reason, please contact the office. b. Intermittent leg pain may also be experienced and should not be concerned about unless it worsens for no apparent reason. If so, please contact the office. 5. We will provide appropriate medication within the normal guidelines of their prescribed use. We will also be very cautious and aware of potential abuse and extended duration of patients' medication needs. a. Pain medications are for your comfort and to assist with sleep and rest so that the tissue can heal. They are not provided in order to return to normal activity and should not be used through the day. To do so or worsening pain at night can result from ongoing tissue damage and development of tolerance to the prescribed medicine. 6. Please allow 2-3 days to process refills. Prescriptions will not be mailed but must be picked up at the office. FOLLOW UP VISIT: Keep your scheduled follow-up appointment. Any questions, please call the office at . Pending Studies at Discharge: No Stand-Alone Forms: [employer], Smoking Cessation Medications and DC Order Prescriptions: New tramadol 50 mg tablet 50 mg PO Q6H PRN (Reason: pain, moderate) Qty: 30 0RF oxycodone 5 mg tablet 5 mg PO Q6H PRN (Reason: pain) Qty: 30 0RF Continued albuterol sulfate 90 mcg/actuation HFA aerosol inhaler 90 mcg inhalation BID PRN (Reason: sob) cyanocobalamin (vitamin B-12) 1,000 mcg/mL kit 1,000 mcg IM MONTHLY Qty: 7 0RF fluticasone propionate 50 mcg/actuation spray,suspension 2 spray intranasal DAILY Qty: 16 2RF Rx Instructions: administer into each nostril prazosin 1 mg capsule 3 mg PO HS Qty: 90 2RF tizanidine 4 mg capsule 4 mg PO BID PRN (Reason: muscle spasticity) Qty: 60 0RF lorazepam 1 mg tablet 1 mg PO TID PRN (Reason: anxiety) Qty: 90 0RF fluoxetine 20 mg capsule 30 mg PO QAM epinephrine 0.3 mg/0.3 mL auto-injector 0.3 mg IM Q4H PRN (Reason: food allergies) cetirizine 10 mg tablet 10 mg PO DAILY PRN (Reason: allergies) buspirone 10 mg Tablet 20 mg PO BID celecoxib [Celebrex] 200 mg capsule 200 mg PO QAM omeprazole 40 mg capsule,delayed release(DR/EC) 40 mg PO QAM magnesium oxide 400 mg magnesium tablet 400 mg PO QAM Discharge Orders: Discharge Order (Routine); Ordered 04/20/23 Ordered By: Nicolas León Admission Data Admit Date/Time: 04/17/23 13:05 Attending Provider: Nicolas León Admit Provider: Nicolas León Primary Care Provider: Иван Gordon Other Providers: Rocio Banks ; Jaylan Johns
--- NOTE | 2023-04-20 12:42 | Hospitalist Progress Note ---
Date of Service April 20, 2023 Assessment & Plan (1) Neurogenic claudication due to lumbar spinal stenosis: Plan #. Status post lumbar decompression fusion by Dr. León #. Neurogenic claudication due to lumbar spinal stenosis #. Acute blood loss anemia: Secondary to operative blood loss patient with no signs and symptoms of anemia, no need for transfusion. Patient is a status post surgery 04/17, hemodynamically stable. Pain management. DVT prophylaxis and PT OT per primary team. Hb fairly stable now. #. Chronic medical condition: c/w home meds as able. DVT Px: SCDs, per primary full code. dispo: dc per primary. Admission and Anticipated Discharge Date Admission Date: April 17, 2023 Subjective Patient seen and examined at bedside as a follow-up of medical management for lumbar decompression and fusion. Patient was lying semiupright in bed, on room air, NAD, denies any new acute event overnight. Reports soreness at operative site under control. Reports moving bowel, reports pain under control with pain medications. Denies any headache/fever/chills/chest pain/other review of symptoms. Physical Exam Physical Exam: GENERAL: Alert and oriented x3. NAD, on RA. HEENT: No pallor, no icterus. Pupils equal, round and reactive to light. Oral mucosa moist. NECK: No JVD, no neck masses. HEART: S1 and S2 heard. Regular rate and rhythm. No murmur, no gallop. RESPIRATORY SYSTEM: Normal AP diameter. No accessory muscle use. No wheezing, no crackles. ABDOMEN: Soft, bowel sounds present, nontender, no distention. CENTRAL NERVOUS SYSTEM: No facial droop. Speech is clear. Obeys simple commands. Moves extremities. EXTREMITIES: No edema, no erythema seen. Lower back with clean dressing without soakage, NIALL drain with scant serosanguineous collection noted. Distal neurovascular status WNL. Results & Data Results & Data Vital Signs (Past 12 Hours) Vital Signs Temp Pulse Pulse Resp BP BP Pulse Ox 04/20/23 12:38 36.8 C 84 18 133/78 98 04/20/23 07:25 36.8 C 84 18 119/72 96 O2 Del Method 04/20/23 12:38 04/20/23 07:25 Room Air
== END 2023-04-20 13:00 | disposition home or self-care (01) | DRG 454 ==
LOC: ASU 09:01 → 3W 13:05